=== PATIENT | male | born 1990 | race Caucasian/White ===

== ENCOUNTER 2021-07-31 07:30 | Outpatient (REF) | payer OTHER, SELFPAY ==
--- NOTE | ~2021-07-31 | XR_ITS ---
EXAMINATION: KNEE X-RAY CLINICAL INFORMATION: Pain COMPARISON: None TECHNIQUE: Standing AP view of both knees and lateral and sunrise view of the right knee FINDINGS: Right: Bone alignment is normal. No fracture or dislocation is seen. Joint spaces are normal. There is no joint effusion. Standing AP view of the left knee is unremarkable. XR/XR knee RT 2V IMPRESSION: Unremarkable exam.
--- NOTE | ~2021-07-31 | XR_ITS ---
EXAMINATION: KNEE X-RAY CLINICAL INFORMATION: Pain COMPARISON: None TECHNIQUE: Standing AP view of both knees and lateral and sunrise view of the right knee FINDINGS: Right: Bone alignment is normal. No fracture or dislocation is seen. Joint spaces are normal. There is no joint effusion. Standing AP view of the left knee is unremarkable. XR/XR knee standing BI IMPRESSION: Unremarkable exam.
== END 2021-07-31 07:31 | disposition home or self-care (01) ==
LOC: HO.HOSX 07:30
PROVIDERS: Visit Provider Orthopaedic Surgery
DX: S83.241A Other tear of medial meniscus, current injury, right knee, initial encounter (principal)
CPT/HCPCS: 73560; 73565

== ENCOUNTER 2021-08-09 17:43 | Outpatient (REF) | payer OTHER, SELFPAY ==
--- NOTE | ~2021-08-09 | MR_ITS ---
EXAMINATION: MR KNEE WITHOUT CONTRAST, RIGHT CLINICAL INFORMATION: Tear of medial meniscus. COMPARISON: X-rays of the right knee July 2021. TECHNIQUE: MRI of the knee without contrast was performed using routine sequences on a high-field scanner. FINDINGS: MENISCI: Medial Meniscus: There is a displaced bucket-handle tear extending anterior to posterior. The displaced fragment is noted within the medial aspect of the intercondylar notch and involves approximately 10-20% of the volume of the meniscus. There is additional oblique increased signal in the posterior horn and body of the nondisplaced portion of the meniscus which could reflect additional tearing of this component. Lateral Meniscus: Intact. LIGAMENTS: Cruciate: Intact. Collateral: Intact. EXTENSOR MECHANISM: Intact. ARTICULAR CARTILAGE/BONE: Patellofemoral Compartment: Normal. Medial Compartment: Normal. Lateral Compartment: Normal. JOINT FLUID AND BURSAE: Small Jackman's cyst. Mild effusion. MR/MR knee RT wo con IMPRESSION: Displaced bucket-handle tear of the medial meniscus.
== END 2021-08-09 17:44 | disposition home or self-care (01) ==
LOC: HO.MRI 17:43
PROVIDERS: Visit Provider Orthopaedic Surgery
DX: S83.241A Other tear of medial meniscus, current injury, right knee, initial encounter (principal); X58.XXXA Exposure to other specified factors, initial encounter; Y93.9 Activity, unspecified; Y92.9 Unspecified place or not applicable; Y99.9 Unspecified external cause status
CPT/HCPCS: 73721

== ENCOUNTER → 2021-08-17 15:35 | Outpatient (BNVA) | payer OTHER, SELFPAY | PROVIDERS: PCP Nurse Practitioner Family; Visit Provider Orthopaedic Surgery | DX: S83.211A Bucket-handle tear of medial meniscus, current injury, right knee, initial encounter (principal) ==

== ENCOUNTER 2021-09-13 07:00 | Day surgery (SDC) | payer OTHER, SELFPAY ==
--- NOTE | 2021-09-12 08:57 | HO.ANESPROP2 ---
Documented by User: Hodan Mullins NP 09/12/21 08:57 HPI - Anesthesia Eval Consult details Narrative: 30yo M for Right Knee Arthroscopy PMFSH Active Problems Active Problems: All Active Problems (Updated 08/17/21 @ 15:55 by Roberto Carlos Angela) Bucket handle tear of medial meniscus of right knee (Acute) Tear of medial meniscus of right knee (Acute) Social History Social History Current occupational status: employed Current occupation: [employer] Allergies Allergy/AdvReac Type Severity Reaction Status Date / Time No Known Allergies Allergy Verified 08/17/21 15:47 Exam Exam Date and Time: September 12, 2021 0857 Assessment and Plan Assessment Anesthesia Assessment: Chart Reviewed Documented by User: Johny Thomas MD 09/13/21 16:24 PMFSH Family History Family history of problems with anesthesia: No Surgical History History of Problems with Anesthesia: No Social History Social History Current occupational status: employed Current occupation: [employer] Allergies Allergy/AdvReac Type Severity Reaction Status Date / Time No Known Allergies Allergy Verified 08/17/21 15:47 Exam Airway Mallampati Class: II TM Dist: >3cm Neck ROM: Full Loose/Missing/Broken Teeth: Yes (Chipped teeth ) Heart: S1,S2 Lungs: b/l breath sounds Assessment and Plan Assessment Anesthesia Assessment: Anesthesia Plan Discussed Final Anesthetic Review Family History of Problems with Anesthesia: No History of Problems with Anesthesia: No NPO: Yes ASA Class: II Final Preanesthetic Review: Meds/Allgs Chart Reviewed, Consent Obtained/Reviewed and Anes Risks/Benef Reviewed Patient Risk: Intermediate Procedure Risk: Intermediate Anesthetic Plan Anesthetic Plan: GA Disposition: Standard PACU
[2021-09-13] VITALS (10 sets, daily range): BP systolic 116–135; BP diastolic 68–89; PULSE 52–68; RESP 16–19; TEMP 36.3–36.6; O2SAT 97–100; BMI 28.3
[2021-09-13] MEDS: Lactated Ringers 1,000 ML 100 ML IVCONT (07:48)
--- NOTE | 2021-09-13 08:27 | MHC.SHP ---
Pre-Procedural Eval Section A Date of Service: 09/13/21 The patient is an INPATIENT: No Changes since office visit: Yes Patient answered all questions; No Cold of Flu in the past 2 weeks, No New Medical Problems and No Changes in Medication The History & Physical has been completed within 30 days and I have reviewed it.: Yes Section B Chief Complaint: Other tear of medial meniscus, current injury, Allergies: Allergies Allergy/AdvReac Type Severity Reaction Status Date / Time No Known Allergies Allergy Verified 08/17/21 15:47 Plan I have reviewed the history and physical and performed a pertinent physical examination on my patient. No changes have occurred unless specified.
--- NOTE | 2021-09-13 09:37 | P.BOP_ITS ---
Brief Operative Note Date of Service: 09/13/21 Pre-op diagnosis: bucket handle medial meniscus tear right knee Procedure: Partial medial meniscectomy right knee Implants: none Surgeon: Sánchez Ojeda MD Anesthesia: GETA and local Was an Retail Stock Clerk used for this Procedure?: Yes Retail Stock Clerk: Grace Russell Estimated blood loss (mL): 1 Tourniquet time (min): 34 IV fluids (mL): 600 Pathology: none sent Condition: stable Disposition: PACU
[2021-09-13] MEDS: oxyCODONE HCl Immed Release 5 MG TABLET PO (09:59)
[2021-09-13] MEDS: Acetaminophen 325 MG TABLET 650 MG PO (10:00)
[2021-09-13] MEDS: fentaNYL citrate/PF 100 MCG/2 ML VIAL 25 MCG IVPUSH ×3 (10:04→10:15)
--- NOTE | 2021-09-13 10:06 | W.PM.OPN ---
Operative Note Operative Note Date of Service: 09/13/21 Narrative: Date of Service: 09/13/21 Pre-op diagnosis: bucket handle medial meniscus tear right knee Procedure: Partial medial meniscectomy right knee Implants: none Surgeon: Sánchez Ojeda MD Anesthesia: GETA and local Was an Car Head Liner Installer used for this Procedure?: Yes Car Head Liner Installer: Grace Russell Estimated blood loss (mL): 1 Tourniquet time (min): 34 IV fluids (mL): 600 Pathology: none sent Condition: stable Disposition: PACU Procedure in detail: Patient was brought to the operating room placed supine on the arthroscopic table and prepped and draped in standard sterile fashion. A time-out was called to identify proper site proper procedure proper surgeon and IV antibiotics per weight were administered. I began by exsanguinating the limb and insufflating tourniquet to 300 mm Hg. Then made a standard anterolateral stab incision. The knee was insufflated with water and 30 degree arthroscope was placed. The patella, trochlea, suprapatellar pouch and the gutters were normal. I descended into the medial compartment where I made my medial portal under direct visualization. There was obvious of complex bucket handle tear of the medial meniscus displaced into the notch. The medial compartment articular cartilage was pristine as was the lateral compartment including the lateral meniscus. The ACL was intact. I debrided the infra-patellar fat pad for visualization and sacrificed the inter-meniscal ligament as this was displaced posteriorly likely from anterior meniscal tearing. The bucket handle was through the central portion of the meniscus and was mostly white-white although likely some red-white portions were involved but the torn portion was badly frayed and incompetant. Reduction was difficult and given the quality of the torn portion as well as the duration of injury and the location of the tear, partial meniscectomy was indicate. I used a biter and shaver to remove the torn portion. There was a rim of healthy meniscus with an intact root. Approximately 50 % of the meniscal volume was removed. Final pictures were taken and the medial meniscus was stable. I then removed all instrumentation and closed the portals with skin glue. 25 mL of 2% Marcaine with epinephrine was injected into the joint and the surrounding soft tissues. Patient was then placed in sterile dressing extubated brought recovery room stable condition. There were no known complications.
== END 2021-09-13 11:00 | disposition home or self-care (01) ==
PROVIDERS: PCP Family Medicine; Visit Provider Orthopaedic Surgery
PROC: (CPT 29870; principal; 2021-09-13 08:30)
DX: S83.211A Bucket-handle tear of medial meniscus, current injury, right knee, initial encounter (principal); X58.XXXA Exposure to other specified factors, initial encounter; Y93.9 Activity, unspecified; Y92.9 Unspecified place or not applicable; Y99.8 Other external cause status
CPT/HCPCS: 29881; J0171; J0690; J1100; J2250; J2405; J2795; J3010

== ENCOUNTER 2021-11-15 17:00 | Outpatient (RCR) | payer OTHER, SELFPAY ==
--- NOTE | 2021-09-18 15:53 | MHC.PT.EP ---
[facility] [place] Office [place] Office [place] Office [address] Jenny Stockton [address] [phone] F: [phone] F: [phone] F: [phone] F: [phone] Physical Therapy Plan of Care Date of Evaluation: Date of Surgery: 09/13/21 Diagnosis: RIGHT MEDIAL MENISECTOMY Assessment: MAYA IS A PLEASANT AND ACTIVE 30 YO MALE WHO PRESENTS S/P MEDIAL MENISCECTOMY, POD #5 FOR ORTHOPEDIC FOLLOW UP AND PT EVALUATION. UPON EXAM HE DEMONSTRATES THE EXPECTED IMPAIRMENTS OF DECREASED ROM, DECREASED STRENGTH, ALTERED POSTURE AND POSITIONING, ALTERED GAIT AND BALANCE, AND INCREASED PAIN AND EDEMA. FUNCTIONAL LIMITATIONS INCLUDE DECREASED ABILITY TO PERFORM HOMEMAKING AND SELF-CARE TASKS, DECREASED ABILITY TO PERFORM WALKING, RUNNING, JUMPING AND SQUATTING, INABILITY TO DRIVE AND PERFORM WORK TASKS, DECREASED PARTICIPATION IN COMMUNITY AND RECREATIONAL ACTIVITIES AND DISRUPTED SLEEP. THE Pt IS A GOOD CANDIDATE FOR SKILLED PT DUE TO AGE, POTENTIAL REMEDIATION OF IMPAIRMENTS, TYPICAL DISEASE/CONDITION PROGRESSION AND PROGNOSIS, COMORBIDITIES, AND MOTIVATION. PT WOULD BENEFIT FROM TAILORED PROGRAM OF THERAPEUTIC ACTIVITIES, FUNCTIONAL TRAINING, GAIT TRAINING, POSTURAL EDUCATION, NEUROMUSCULAR RE-EDUCATION, AND MODALITIES NEEDED. Frequency and Duration: The patient will be seen 2 X WEEK FOR 4 WEEKS Short Term Goals: INITIATE HEP AND PROMOTE SELF MANAGEMENT OF SYMPTOMS Peer Financial Counselor Goals: TO DEMONSTRATE FULL KNEE ROM, EQUAL RAJEEV TO DEMONSTRATE FULL LE STRENGTH, EQUAL RAJEEV TO ASCEND AND DESCEND STAIRS WITH RECIPROCAL GAIT WITHOUT PAIN TO AMBULATE AD GORDON ON LEVEL AND UNEVEN SURFACES FOR FITNESS WITHOUT PAIN TO PERFORM FULL FUNCTIONAL SQUAT WITHOUT SUBSTITUTION TO RETURN TO BIKING FOR RECREATION Treatment Plan: Modalities to reduce pain, spasms and effusion. Manual therapy to restore motion and function. Therapeutic exercise to improve strength and flexibility. Neuromuscular re-education for posture and balance. Therapeutic activities to return to functional activities of daily living. Electronically signed by: EDUAR APPIAH PT, DPT Please sign and return to therapist. Thank you for your referral.
--- NOTE | 2021-11-15 18:00 | MHC.PT.DC ---
[facility] [place] Office [place] Office [place] Office [address] Jenny Stockton [address] [phone] F: [phone] F: [phone] F: [phone] F: [phone] Physical Therapy Discharge Report Diagnosis: RIGHT MEDIAL MENISECTOMY Date of Surgery: 09/13/21 Date of Evaluation: 09/18/21 Date of Discharge: 11/15/21 Treatments to Date: 11 Cancellations to Date: 1 No Shows to Date: 0 Discharge Status: Achieved Goals Improved Function Independent with HEP Discharge Summary: Pt has made excellent progress since SOC. He has minimal to no pain at rest and with activity. He has met his STGs and LTGs. His R knee ROM is WFL and strength is 5/5 throughout R knee. He is able to ascend/descend stairs with reciprocal pattern. He is motivated and I with HEP. Pt is being D/C from skilled PT at this time. Provided pt with printed, updated copy of HEP and pt verbalized understanding. Pt reports no further questions or concerns for PT at this time. Electronically signed by: Danielle Saez, PT, DPT Please sign and return to therapist. Thank you for your referral.
== END 2021-11-15 18:01 | disposition home or self-care (01) ==
LOC: HO.PT 17:00
PROVIDERS: Visit Provider Physician Assistant
DX: S83.211A Bucket-handle tear of medial meniscus, current injury, right knee, initial encounter (principal); S83.241A Other tear of medial meniscus, current injury, right knee, initial encounter
CPT/HCPCS: 97110; 97112; 97161; 97530

== ENCOUNTER → 2024-06-11 15:24 | Outpatient (BNVA) | payer OTHER, SELFPAY | PROVIDERS: PCP Family Medicine; Visit Provider Physician Assistant | DX: S60.572A Other superficial bite of hand of left hand, initial encounter (principal); W50.3XXA Accidental bite by another person, initial encounter; Z23 Encounter for immunization | CPT/HCPCS: 86706; 99203 ==

== ENCOUNTER → 2024-06-15 08:41 | Outpatient (BNVA) | payer OTHER, SELFPAY | PROVIDERS: PCP Family Medicine; Visit Provider Physician Assistant Medical | DX: Z23 Encounter for immunization (principal); S60.572A Other superficial bite of hand of left hand, initial encounter; X50.3XXA Overexertion from repetitive movements, initial encounter | CPT/HCPCS: 99213 ==